=== PATIENT | male | born 1990 | race Caucasian/White ===

== ENCOUNTER 2019-07-04 14:48 | Day surgery (SDC) | payer OTHER ==
[2019-07-04] MEDS: LACTATED RINGER'S 1,000 ML IV (16:08)
[2019-07-04] MEDS ORDERED: POLYMYXIN/BACITRACIN 1L IRRIG (17:12)
[2019-07-04] MEDS ORDERED: ROPIVACAINE 0.5 % 30 ML VIAL ×2 (17:12→17:32)
[2019-07-04] MEDS ORDERED: MIDAZOLAM 1 MG/ML 2 ML INJ (17:28)
[2019-07-04] MEDS ORDERED: FENTAnyl 50 MCG/ML VIAL (17:28)
[2019-07-04] MEDS ORDERED: METOCLOPRAMIDE 10 MG INJ IV (17:30)
[2019-07-04] MEDS ORDERED: MEPERIDINE 25 MG INJ IV (17:30)
[2019-07-04] MEDS ORDERED: HYDROmorphONE 1 MG/5 ML IV SYRINGE IV ×3 (17:30)
[2019-07-04] MEDS ORDERED: FENTAnyl 50 MCG/ML VIAL IV ×2 (17:30)
[2019-07-04] MEDS ORDERED: ALBUTEROL 0.083% (NEB) 2.5 MG/3 ML AMP HHN (17:30)
[2019-07-04] MEDS ORDERED: DIPHENHYDRAMINE 50 MG INJ IV (17:30)
[2019-07-04] MEDS ORDERED: DESFLURANE 15 MIN (17:32)
[2019-07-04] MEDS ORDERED: SUGAMMADEX SODIUM 200 MG/2 ML VIAL IV (17:32)
[2019-07-04] MEDS ORDERED: morphine 2 MG INJ IV (18:00)
[2019-07-04] MEDS ORDERED: SUCCINYLCHOLINE CHLORIDE 100 MG/5 ML SYG IV (18:36)
[2019-07-04] MEDS ORDERED: PROPOFOL 40 ML (18:36)
[2019-07-04] MEDS ORDERED: CLINDAMYCIN 900 MG (PMX) 50 ML IVPB (18:36)
[2019-07-04] MEDS ORDERED: ROCURONIUM 50 MG INJ (18:36)
[2019-07-04] MEDS ORDERED: LIDOCAINE 100 MG SYRINGE (18:36)
[2019-07-04] MEDS: BACITRACIN/POLYMYXIN 28.35 GM OINT TOP (18:45)
[2019-07-04] MEDS: POLYMYXIN/BACITRACIN 1L IRRIG (18:46)
[2019-07-04] MEDS: ONDANSETRON 4 MG INJ IV (19:47)
[2019-07-04] MEDS: FENTAnyl 50 MCG/ML VIAL IV ×2 (19:47→19:54)
[2019-07-04] MEDS: KETOROLAC 30 MG INJ IV (20:01)
== END 2019-07-04 21:10 | disposition home or self-care (01) ==
LOC: SDS 14:48
DX: S82.61XD Displaced fracture of lateral malleolus of right fibula, subsequent encounter for closed fracture with routine healing (principal); S93.431D Sprain of tibiofibular ligament of right ankle, subsequent encounter; X58.XXXD Exposure to other specified factors, subsequent encounter
CPT/HCPCS: 27792; 73590; 82306